=== PATIENT | male | born 1980 | race Caucasian/White ===

== ENCOUNTER 2023-01-04 11:07 | Outpatient (CLI) | payer BC, SELFPAY | END 2023-01-04 11:08 | disposition home or self-care (01) | PROVIDERS: PCP Family Medicine; Visit Provider Nurse Practitioner Family | DX: K13.79 Other lesions of oral mucosa (principal) | CPT/HCPCS: 82607; 82746; 86140 ==

== ENCOUNTER 2023-04-03 08:02 | Outpatient (CLI) | payer BC, SELFPAY | END 2023-04-03 08:03 | disposition home or self-care (01) | LOC: NFLDREF 17:49 | PROVIDERS: PCP Family Medicine; Referring Provider Family Medicine; Visit Provider Family Medicine | DX: Z00.00 Encounter for general adult medical examination without abnormal findings (principal); Z12.5 Encounter for screening for malignant neoplasm of prostate; Z13.6 Encounter for screening for cardiovascular disorders; Z80.42 Family history of malignant neoplasm of prostate | CPT/HCPCS: 80061; 84153 ==

== ENCOUNTER 2025-02-23 08:40 | Outpatient (CLI) | payer BC, SELFPAY | END 2025-02-23 08:41 | disposition home or self-care (01) | PROVIDERS: PCP Family Medicine; Visit Provider Family Medicine | DX: E78.00 Pure hypercholesterolemia, unspecified (principal); K64.9 Unspecified hemorrhoids; Z12.5 Encounter for screening for malignant neoplasm of prostate | CPT/HCPCS: 80053; 80061; G0103 ==

== ENCOUNTER 2025-03-16 08:36 | Outpatient (CLI) | payer BC, SELFPAY ==
--- NOTE | 2025-03-16 10:00 | P.ANES_ITS ---
Anesthesia Charges Start Date/Time Anesthesia Start Date: 03/16/25 Anesthesia Start Time: 09:30 Stop Date/Time Anesthesia Stop Date: 03/16/25 Anesthesia Stop Time: 09:59 Coding CPT Codes CPT Codes: HANS LWR INTST NDSC NOS - [id number] ([id number]) P1 - NORMAL HEALTHY PATIENT, QK - GLASS CARRIER 2-4 CNCRNT ANES PROC, QX - SUPERVISOR SOAKERS SVC W/ MED DIRECTION
--- NOTE | 2025-03-16 10:00 | W.ANESCHARGE ---
Anesthesia Charges Start Date/Time Anesthesia Start Date: 03/16/25 Anesthesia Start Time: 09:30 Stop Date/Time Anesthesia Stop Date: 03/16/25 Anesthesia Stop Time: 09:59 Coding CPT Codes CPT Codes: HANS LWR INTST NDSC NOS - [id number] ([id number]) P1 - NORMAL HEALTHY PATIENT, QK - HALL TENDER 2-4 CNCRNT ANES PROC, QX - LAWN CARE SPECIALIST SVC W/ MED DIRECTION
--- NOTE | 2025-03-16 10:55 | P.ANES_ITS ---
Anesthesia Charges Start Date/Time Anesthesia Start Date: 03/16/25 Anesthesia Start Time: 09:30 Stop Date/Time Anesthesia Stop Date: 03/16/25 Anesthesia Stop Time: 09:59 Coding CPT Codes CPT Codes: HANS LWR INTST NDSC NOS - [id number] ([id number]) P1 - NORMAL HEALTHY PATIENT, QK - PARTS INTERPRETER 2-4 CNCRNT ANES PROC, QX - CIVIL TECHNICIAN SVC W/ MED DIRECTION
--- NOTE | 2025-03-16 10:55 | W.ANESCHARGE ---
Anesthesia Charges Start Date/Time Anesthesia Start Date: 03/16/25 Anesthesia Start Time: 09:30 Stop Date/Time Anesthesia Stop Date: 03/16/25 Anesthesia Stop Time: 09:59 Coding CPT Codes CPT Codes: HANS LWR INTST NDSC NOS - [id number] ([id number]) P1 - NORMAL HEALTHY PATIENT, QK - SCRIPT GIRL 2-4 CNCRNT ANES PROC, QX - HAT PARTS CUTTER MACHINE SVC W/ MED DIRECTION
== END 2025-03-16 08:37 | disposition home or self-care (01) ==
LOC: OP CLINIC 08:36
PROVIDERS: PCP Family Medicine; Visit Provider Surgery
DX: Z12.11 Encounter for screening for malignant neoplasm of colon (principal); Z83.719 Family history of colon polyps, unspecified; D12.2 Benign neoplasm of ascending colon; D12.5 Benign neoplasm of sigmoid colon
CPT/HCPCS: 00811; 00812; 45385; 88305; J2704

== ENCOUNTER 2025-04-19 08:00 | Outpatient (RCR) | payer BC, SELFPAY | END 2025-07-07 10:56 | disposition home or self-care (01) | PROVIDERS: PCP Family Medicine; Visit Provider Family Medicine | DX: M54.9 Dorsalgia, unspecified (principal); Z51.89 Encounter for other specified aftercare | CPT/HCPCS: 97110; 97140; 97161 ==